=== PATIENT | female | born 1960 | race Caucasian/White ===

== ENCOUNTER 2017-08-24 09:20 | Emergency (ER) | payer BC ==
--- OUTSIDE RECORDS SUMMARY | 2017-08-24 09:28 | XMS REPORT ---
:1960 External Reference #:[id number] Author Organization [employer] Address [address] [place] [address] Phone [phone] Care Team Providers Name Role Phone Geeta Raymond DOOR PERSON-C Primary Care Physician Unavailable Payers Type Date Identification Numbers Payment Provider Subscriber Commercial Policy Number: [id number] BS MARYY Reginald Kwadwo Roldan PayID: [id number] [facility] [address] [place] [address] Problems Date Description Provider Status Onset: Rosacea Active Onset: Menopausal symptom Active Onset: Migraine Active Onset: Panic disorder Active Onset: Seasonal allergy Active Onset: Degeneration of cervical Active intervertebral disc Onset: 02/23/2015 Facial nerve disorder Ana Paula Paredes O.D. Active Onset: 03/04/2015 Superficial keratitis Ana Paula Paredes O.D. 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 Active Onset: 06/13/2015 Punctate keratitis Ana Paula Paredes O.D. Active Onset: 06/13/2015 Nuclear senile cataract Ana Paula Paredes O.D. 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 ETOH Use Rarely consumes alcohol Smoking Patient has never smoked Recreational Drug Use Denies Drug Use Daily Caffeine Does Not Consume Caffeine Allergies, Adverse Reactions, Alerts Date Description Reaction Status Severity Comments 02/23/2015 Aspirin Nausea and Vomiting active 02/23/2015 Epinephrine Convulsions active 02/23/2015 Iodine Convulsions active 02/23/2015 Red Wine active 02/23/2015 Strawberries active Medications Medication Date Status Form Strength Qnty SIG Indications Ordering Provider Restasis Active Emulsion 0.05% 90Day 1 drops H04.123 Ana Paula JCarmen 017 both eyes [place], twice a O.D. day Systane Active Solution 0.4-0.3% 5ml 1 drop Ana Paula Egan Preservative 015 both eyes [place], Free 2-3 times O.D. a day Emergen-C Active Packet Unknown Immune Plus 000 Vitamin B Active Tablets Unknown Complex 000 Restasis Hx Emulsion 0.05% 180unit 1 drops H16.143 Ana Paula Egan 015 - s both eyes [place], twice a O.D. 016 day Systane PM Hx At Ana Paula J. 015 - Bedtime [place], O.D. 018 Medications Administered in Office Medication Date Status Form Strength Qnty SIG Indications Ordering Provider Crizal Administered Injection Verona 3 Brown,Abo Crizal Administered Injection Verona 3 Brown,Abo Results Description No Information Procedures Date CPT Code Description Status 11/14/2016 42948 Est Patient Comprehensive Exam Completed 10/08/2016 67404 Close Lacrimal Punctum, Plug Completed 09/17/2016 54419 Est Patient Intermediate Exam Completed 09/17/2016 99377 Close Lacrimal Punctum, Plug Completed 11/11/2015 21814 Est Patient Comprehensive Exam Completed 06/13/2015 26266 Est Patient Intermediate Exam Completed 06/13/2015 67819 Close Lacrimal Punctum, Plug Completed 06/13/2015 40022 Close Lacrimal Punctum, Plug Completed 03/04/2015 14365 Close Lacrimal Punctum, Plug Completed 03/04/2015 72891 Close Lacrimal Punctum, Plug Completed 03/04/2015 22675 Est Patient Intermediate Exam Completed 02/23/2015 37009 Est Patient Intermediate Exam Completed 11/24/2014 508 Refresh PM Ointment Completed 08/09/2014 88431 Determination Of Refractive State Completed 08/09/2014 54688 Est Patient Comprehensive Exam Completed 04/29/2013 67113 Est Patient Intermediate Exam Completed 06/11/2012 88917 Determination Of Refractive State Completed 06/11/2012 05761 Est Patient Comprehensive Exam Completed 12/05/2011 74792 Est Patient Comprehensive Exam Completed 05/09/2011 202 Refit SCL Completed 05/09/2011 56902 Est Patient Comprehensive Exam Completed 04/28/2010 50331 Est Patient Comprehensive Exam Completed 03/18/2009 97082 Determination Of Refractive State Completed 03/18/2009 49605 Est Patient Comprehensive Exam Completed 03/19/2008 13163 Est Patient Comprehensive Exam Completed 03/12/2008 24980 Determination Of Refractive State Completed 03/12/2008 72013 Est Patient Comprehensive Exam Completed 03/10/2007 17549 Determination Of Refractive State Completed 03/10/2007 83318 Est Patient Comprehensive Exam Completed 12/10/2005 28570 Est Patient Intermediate Exam Completed 12/10/2005 22555 Determination Of Refractive State Completed 09/24/2005 10986 Est Patient Intermediate Exam Completed 04/25/2005 78979 Est Patient Intermediate Exam Completed 04/25/2005 508 Refresh PM Ointment Completed 04/25/2005 505 Liquigel Eye Drops 15ML Completed 12/29/2004 01196 Est Patient Intermediate Exam Completed 11/02/2004 61977 Photography Ocular External Completed 06/14/2004 27479 Determination Of Refractive State Completed 06/14/2004 03960 Est Patient Comprehensive Exam Completed 07/22/2003 113 Crizal Completed 08/21/2002 113 Crizal Completed Encounters Type Date Location Provider CPT E/M Dx Office Visit 02/13/2017 Antonio Gonzalez MD, Ana Paula Paredes, 00327 H04.123 3:00p pc O.D. Q12.0 H40.052 Office Visit 10/17/2016 1:40p Antonio Gonzalez MD, Ana Paula Paredes, 01691 H04.123 pc O.D. Office Visit 10/08/2016 2:20p Antonio Gonzalez MD, Ana Paula Paredes, 15210 H04.123 pc O.D. Office Visit 11/24/2014 4:00p Antonio Gonzalez MD, Ana Paula Paredes, 02822 375.15 pc O.D. Office Visit 11/17/2014 4:00p Antonio Gonzalez MD, Ana Paula Paredes, 18875 375.15 pc O.D. Office Visit 06/15/2013 7:00p Antonio Gonzalez MD, Ana Paula Paredes, 94548 379.21 pc O.D. Office Visit 05/14/2013 11:10a Antonio Gonzalez MD, Ana Paula Paredes, 35821 375.15 pc O.D. Office Visit 11/02/2004 10:45a Antonio Gonzalez MD, Jose Caputo M.D. 95458 743.51 pc Plan of Care 08/16/2017 - Ana Paula Pardees O.D.H04.123 Dry eye syndrome of bilateral lacrimal glandsComments:continue restasis both eyes 2 x daycontinue artificial tears both eyes as neededFollow up:6 Month Follow Up You can expect to have your eyes dilated at your next visit. If Dr. Paredes orders any additional testing, it may require extra time. We recommend that you bring sunglasses, as dilation drops often make you light sensitive until they wear off. We always recommend you bring someone to drive you home if you are uncomfortable driving with your eyes dilated. If you have any questions before your next visit, feel free to call our office at .Q12.0 Congenital htfhcvdoU51.052 Ocular hypertension, left eye
--- NOTE | 2017-08-24 10:16 | ED ---
Abdominal Pain/Female - HPI Summary HPI Summary: G?P? fit pt here w/ RLQ pain that started last night abruptly and has persisted into this morning. She describes pain as "pulsatile" and intermittent. Has been controlling well with 200-400MG of ibuprofen PO at home. Called her PCP this morning who wanted to schedule her for an appointment however PCP couldn't order outpt imaging so was sent here. Pt reports feeling well overall yesterday (ie. eating/drinking well, exercised as usual, had a normal BM, etc) until about 23:00 - pain started and had associated sx of stomach feeling "off" - doesn't feel this was true nausea and did not have vomiting - ate dinner but appetite wasn't what it usually is. Last ate around 21:30. Does report 1 loose stool since sx started - denies pain w/ this, hematochezia, mucous in stool, etc. She also reports normal urinary habits although she does urinate frequently d/t high water intake - denies burning, urgency, hematuria, flank pain and no vaginal d/c. She does report recently ending her menstrual cycle which she's had once a month every month. Most recent cycle lasted 2 weeks which is longest she's ever bled. H/o uterine polyp and she follows with [facility] for this - has TVUS 5 weeks ago and compared to previous TVUS was told it's getting a little larger, but still in a state of monitoring. No h/o ovarian cyst , cervical pathology, exctopic , etc. She reports h/o tubal ligation and had routine well woman exam w/ pap in the past few months - all normal/ negative. She reports pain at its worse w/o ibuprofen is 6/10. Feels okay at the moment. No previous ab surgeries other than tubal ligation. No other health issues. Other physical sx she found to be new were a facial rash w/ acne and hotflashes yesterday during the day. Reports she gets hotflashes but they're usually at night. She attributed these changes to "hormones" but also reports she started a new B12 supplement w/ stevia which she does not report having had before. Otherwise, no new foods, beverages, detergents, cosmetics, etc. - History of Current Complaint Chief Complaint: Harika Stated Complaint: ABD PAIN, LOWER RIGHT SIDE Time Seen by Provider: 08/24/17 09:34 Hx Obtained From: Patient Hx Last Menstrual Period: NOW Pain Intensity: 5 Allergies/Adverse Reactions: Allergies Allergy/AdvReac Type Severity Reaction Status Date / Time Epinephrine Allergy Severe See Comment Verified 07/12/15 19:49 Sulfamethoxazole Allergy Severe See Comment Verified 07/12/15 19:49 w/Trimethoprim [From Bactrim] Aspirin AdvReac Mild Nausea Verified 07/12/15 19:49 contrast dyes Allergy Severe Shakes Uncoded 01/20/15 07:02 red wine Allergy Severe Anaphylatic Uncoded 01/20/15 07:02 Shock strawberries Allergy Severe Anaphylatic Uncoded 01/20/15 07:02 Shock PMH/Surg Hx/FS Hx/Imm Hx Previously Healthy: Yes Endocrine/Hematology History: Denies: Hx Anticoagulant Therapy, Hx Blood Disorders, Hx Diabetes, Hx Thyroid Disease, Hx Anemia, Hx Coagulopothy, Autoimmune Disease Cardiovascular History: Denies: Hx Aneurysm, Hx Congenital Heart Disease, Hx Hypertension GI History: Reports: Other GI Disorders - preventative colonoscopy at 51y.o. - normal; preg. hemorrhoid History: Reports: Other Problems/Disorders - uterine polyp; menstruation into later age Sensory History: Reports: Hx Cataracts - CONGENITAL LEFT EYE, Hx Contacts or Glasses - GLASSES Denies: Hx Hearing Aid Opthamlomology History: Reports: Hx Cataracts - CONGENITAL LEFT EYE, Hx Contacts or Glasses - GLASSES Neurological History: Reports: Hx Migraine - OCC Psychiatric History: Reports: Hx Anxiety - PANIC DISORDER, Hx Depression - TX IN THE PAST - Cancer History Hx Chemotherapy: No Hx Radiation Therapy: No - Surgical History Surgery Procedure, Year, and Place: dental; T & A 1976; tubal ligation 1992 Hx Anesthesia Reactions: Yes - TOOK VERY LONG TIME TO WAKE UP AFTER TUBAL 1995 Infectious Disease History: No Infectious Disease History: Denies: History Other Infectious Disease, Traveled Outside the [place] in Last 30 Days - Family History Known Family History: Positive: Other - M: breast CA in 80's, remission x 3ys; GM cervical CA in 50's - Social History Occupation: Employed Full-time Lives: With Family Alcohol Use: Rare Hx Substance Use: No Substance Use Type: Reports: None Hx Tobacco Use: No Smoking Status (MU): Never Smoked Tobacco Review of Systems Constitutional: Negative Negative: Fever, Chills, Fatigue ENT: Negative Cardiovascular: Negative Negative: Chest Pain Respiratory: Negative Negative: Shortness Of Breath Positive: Abdominal Pain. Negative: Vomiting, Diarrhea, Nausea Positive: see HPI Musculoskeletal: Negative Skin: Negative Neurological: Negative Psychological: Normal All Other Systems Reviewed And Are Negative: Yes Physical Exam Triage Information Reviewed: Yes Vital Signs On Initial Exam: Initial Vitals Temp Pulse Resp BP Pulse Ox 99.7 F 81 16 130/79 98 08/24/17 09:23 08/24/17 09:23 08/24/17 09:23 08/24/17 09:23 08/24/17 09:23 Vital Signs Reviewed: Yes Appearance: Positive: Well-Appearing, No Pain Distress, Well-Nourished Skin: Positive: Warm, Skin Color Reflects Adequate Perfusion, Dry Head/Face: Positive: Normal Head/Face Inspection Eyes: Positive: EOMI, Conjunctiva Clear - anicteric sclera, Other: - Lt eye ENT: Positive: Normal ENT inspection, Hearing grossly normal, Pharynx normal - mucosa moist Neck: Positive: Supple - no gross thyromegaly Respiratory/Lung Sounds: Positive: Clear to Auscultation, Breath Sounds Present. Negative: Rales, Rhonchi, Wheezes Cardiovascular: Positive: Normal, RRR, Pulses are Symmetrical in both Upper and Lower Extremities, S1, S2. Negative: Murmur, Rub Abdomen Description: Positive: No Organomegaly, Soft, CVA Tenderness (R), Distended - RUQ w/ mild distention (tympany on percussion). Negative: CVA Tenderness (L) Bowel Sounds: Positive: Present Pelvic Exam: Positive: external exam normal, speculum exam normal, no masses, tender w/ cervical motion, tender uterus - Rt side. Negative: active bleeding, cervicitis - scant mucous d/c, lesions Musculoskeletal: Positive: Normal, Strength/ROM Intact Neurological: Positive: Normal, Sensory/Motor Intact, Alert, Oriented to Person Place, Time, CN Intact II-III Psychiatric: Positive: Normal - [place] Coma Scale Coma Scale Total: 15 Diagnostics - Vital Signs Vital Signs Temp Pulse Resp BP Pulse Ox 08/24/17 09:46 99.4 F 08/24/17 09:23 99.7 F 81 16 130/79 98 - Laboratory Result Diagrams: 08/24/17 10:31 08/24/17 10:31 Lab Statement: Any lab studies that have been ordered have been reviewed, and results considered in the medical decision making process. Abdominal Pain Fem Course/Dx - Course Course Of Treatment: TVUS reveals 4.4cm fibroid, smalla mount of fluid in endometrial cavity and no torsion. Pt had relief w/ NSAID in ED - stable. Will d/c back to Dr. Joseph for f/u this week. Danger s/sx reviewed w/ pt and husbad who agree to return as needed - Diagnoses Provider Diagnoses: Pelvic pain in female, Fibroid, uterine Discharge - Discharge Plan Condition: Stable Disposition: HOME Referrals: Javier Joseph MD [Medical Doctor] - Additional Instructions: You appear to have a fibroid in your uterus - following a longer than usual period, this may be the cause of your symptoms currently. You may continue ibuprofen up to 800mg per dose with food for pain. You may also try warm baths, heat pack abdomen/pelvic compresses and eating easily to digest foods to prevent increased gas/bloating/constipation. It is also encouraged that you rest /take it easy until follow-up with [facility]. Follow-up with Dr. Joseph this week - call Saturday to schedule an appointment. *If you develop heavy vaginal bleeding, vaginal discharge, urinary frequency/ pain/blood in urine, fever, chills, chest pain, vomiting, diarrhea, return to ED
[2017-08-24] MEDS ORDERED: Ketorolac INJ* 30 MG/ML 1 ML VIAL IV PUSH ONE ×2 (10:20→13:29)
[2017-08-24 10:42] LABS: ABS Basophils 0.1 10^3/ul (0-0.2); ABS Eosinophils 0.2 10^3/ul (0-0.6); ABS Lymphocytes 2.1 10^3/ul (1.0-4.8); ABS Monocytes 0.3 10^3/ul (0-0.8); ABS Neutrophils 2.9 10^3/ul (1.5-7.7); ABS Nucleated RBC 0 10^3/ul; Eosinophil % 2.9 % (0-6); Hematocrit 39 % (35-47); Hemoglobin 13.1 g/dl (12.0-16.0); Mean Corpuscular HGB Conc 33 g/dl (31-36); Mean Corpuscular Hemoglobin 29 pg (27-31); Mean Corpuscular Volume 86 fL (80-97); Mean Platelet Volume 7 um3 (7.4-10.4); Nucleated Red Blood Cells % 0; Platelet Count 276 10^3/ul (150-450); Red Blood Count 4.58 10^6/ul (4.0-5.4); Red Cell Distribution Width 14 % (10.5-15); White Blood Count 5.6 10^3/ul (3.5-10.8)
[2017-08-24 11:01] LABS: EGFR Non-African American 92.6 (>60)
--- NOTE | 2017-08-24 12:29 | RAD ---
HISTORY: Right lower quadrant pain, history of uterine polyp COMPARISONS: None relevant TECHNIQUE: Multiple transverse and longitudinal ultrasound images were obtained of the pelvis using grayscale, color Doppler, and spectral Doppler imaging using the transabdominal transducer. FINDINGS: UTERUS: The uterus measures 11.1 x 5.6 x 6.6 cm. There is a submucosal fibroid along the anterior body measuring approximately 4.4 x 3.3 x 3.8 cm in size. ENDOMETRIUM: The endometrial stripe is smooth. The endometrium measures 0.6 cm in thickness. There is a small amount of fluid within the endometrial cavity.. CUL-DE-SAC: There is no free fluid within the cul-de-sac. RIGHT OVARY: The right ovary measures 2.7 x 1.1 x 2.5 cm. Normal arterial and venous waveforms are identifiable within the ovary on spectral Doppler imaging. LEFT OVARY: The left ovary is documented visualized. BLADDER: The visualized bladder is unremarkable. OTHER: None IMPRESSION: 1. LEFT OVARY IS NOT CLEARLY VISUALIZED. 2. THERE IS A SUBMUCOSAL FIBROID ALONG THE ANTERIOR BODY MEASURING UP TO 4.4 CM. 3. THERE IS A SMALL AMOUNT OF FLUID WITHIN THE ENDOMETRIAL CAVITY. 4. NO SONOGRAPHIC FEATURES OF RIGHT OVARIAN TORSION. PLEASE NOTE THAT PARTIAL OR INTERMITTENT TORSION MAY BE SONOGRAPHICALLY NORMAL.
[2017-08-24 12:51] LABS: Urine Appearance Cloudy; Urine Blood Negative (Negative); Urine Color Yellow; Urine Ketones Negative (Negative); Urine Protein Negative (Negative); Urine Specific Gravity 1.008 (1.010-1.030); Urine Urobilinogen Negative (Negative)
[2017-08-24 14:20] VITALS: BP 123/81
== END 2017-08-24 14:18 | disposition home or self-care (01) ==
LOC: ED 09:20
DX: R10.2 Pelvic and perineal pain (principal); D25.9 Leiomyoma of uterus, unspecified; R10.31 Right lower quadrant pain
CPT/HCPCS: 36415; 76856; 80053; 81003; 83605; 83690; 83735; 84702; 85025; 86140; 96374; 96375; 99282; J1885

== ENCOUNTER 2018-01-06 21:13 | Observation (INO) | payer BC ==
[2018-01-06] MEDS ORDERED: Labetalol IV* 5 MG/ML 20 ML VIAL IV PUSH ONE (22:10)
[2018-01-06 22:55] LABS: ABS Basophils 0.1 10^3/ul (0-0.2); ABS Eosinophils 0.2 10^3/ul (0-0.6); ABS Lymphocytes 2.7 10^3/ul (1.0-4.8); ABS Monocytes 0.4 10^3/ul (0-0.8); ABS Neutrophils 4.3 10^3/ul (1.5-7.7); ABS Nucleated RBC 0 10^3/ul; Hematocrit 41 % (35-47); Lymphocyte % 34.6 % (25-47); Mean Corpuscular HGB Conc 34 g/dl (31-36); Mean Corpuscular Hemoglobin 29 pg (27-31); Mean Corpuscular Volume 87 fL (80-97); Mean Platelet Volume 7.5 um3 (7.4-10.4); Nucleated Red Blood Cells % 0; Platelet Count 322 10^3/ul (150-450); Red Blood Count 4.78 10^6/ul (4.0-5.4); Red Cell Distribution Width 14 % (10.5-15); White Blood Count 7.7 10^3/ul (3.5-10.8)
[2018-01-06 22:59] LABS: INR 0.99 (0.77-1.02)
[2018-01-06 23:13] LABS: EGFR Non-African American 86.6 (>60)
[2018-01-07] MEDS ORDERED: Aspirin TAB* 325 MG PO ONE (00:07)
--- NOTE | 2018-01-07 00:20 | ED ---
Adilia Marti Emily, scribed for Miguel Carpenter MD on 01/06/18 at 2158 . Neurological HPI - HPI Summary HPI Summary: This patient is a 57 year old F referred to [facility] by Dr. Dunbar accompanied by with a chief complaint of R hand weakness that began 0300 today. The patient rates the pain 6/10 in severity. Symptoms aggravated by nothing. Symptoms alleviated by Valium. Patient reports pulsing neck pain (radiating into back) and R shoulder pain. Pt is dominant R handed. 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 - History of Current Complaint Chief Complaint: EDGeneral Stated Complaint: TINGLING IN RT ARM Time Seen by Provider: 01/06/18 21:49 Hx Obtained From: Patient Hx Last Menstrual Period: NOW Onset/Duration: Sudden Onset, Started hours ago, Still Present Onset Severity: Moderate Current Severity: Moderate Neurological Deficit Location: RUE Pain Intensity: 6 Pain Scale Used: 0-10 Numeric Character: Other: - Positive pulsing neck pain and R should pain Aggravating: Nothing Alleviating: Nothing Associated Signs and Symptoms: Positive: Nothing - Positive pulsing neck pain and R shoulder pain - Allergy/Home Medications Allergies/Adverse Reactions: Allergies Allergy/AdvReac Type Severity Reaction Status Date / Time aspirin Allergy Nausea Verified 01/06/18 23:26 epinephrine Allergy tremors, Verified 01/06/18 23:26 triggers panic response sulfamethoxazole Allergy Anaphylatic Verified 01/06/18 23:26 [From Bactrim] Shock trimethoprim [From Bactrim] Allergy Anaphylatic Verified 01/06/18 23:26 Shock contrast dyes Allergy Severe Shakes Uncoded 01/20/15 07:02 red wine Allergy Severe Anaphylatic Uncoded 01/20/15 07:02 Shock strawberries Allergy Severe Anaphylatic Uncoded 01/20/15 07:02 Shock Home Medications: Home Medications Cholecalciferol (Vitamin D3) [Vitamin D3] 2 drop PO DAILY 01/06/18 [History Confirmed 01/06/18] Cyclosporine 0.05% OPHTH (NF) [Restasis 0.05% OPHTH] 1 drop BOTH EYES BID [History Confirmed 01/06/18] Diazepam TAB(*) [Valium TAB(*)] 5 mg PO TID PRN 01/06/18 [History Confirmed 11/20] FLUoxetine CAP* [PROzac CAP*] 10 mg PO DAILY 01/06/18 [History Confirmed ] Fluoride (Sodium) [Fluoridex] 10 ml PO BID 01/06/18 [History Confirmed 01/06/18] Vitamin B Complex 1 teasp PO DAILY 01/06/18 [History Confirmed 01/06/18] PMH/Surg Hx/FS Hx/Imm Hx Previously Healthy: No Endocrine/Hematology History: Denies: Hx Anticoagulant Therapy, Hx Blood Disorders, Hx Diabetes, Hx Thyroid Disease, Hx Anemia Cardiovascular History: Denies: Hx Aneurysm, Hx Congenital Heart Disease, Hx Hypertension GI History: Reports: Other GI Disorders - preventative colonoscopy at 51y.o. - normal; preg. hemorrhoid History: Reports: Other Problems/Disorders - uterine polyp; menstruation into later age Sensory History: Reports: Hx Cataracts - CONGENITAL LEFT EYE, Hx Contacts or Glasses - GLASSES Denies: Hx Hearing Aid Opthamlomology History: Reports: Hx Cataracts - CONGENITAL LEFT EYE, Hx Contacts or Glasses - GLASSES Neurological History: Reports: Hx Migraine - OCC Psychiatric History: Reports: Hx Anxiety - PANIC DISORDER, Hx Depression - TX IN THE PAST - Cancer History Hx Chemotherapy: No Hx Radiation Therapy: No - Surgical History Surgery Procedure, Year, and Place: dental; T & A 1976; tubal ligation 1992 Hx Anesthesia Reactions: Yes - TOOK VERY LONG TIME TO WAKE UP AFTER TUBAL 1995 Infectious Disease History: No Infectious Disease History: Denies: History Other Infectious Disease, Traveled Outside the [place] in Last 30 Days - Family History Known Family History: Positive: Other - M: breast CA in 80's, remission x 3ys; GM cervical CA in 50's - Social History Occupation: Retired Lives: With Family Alcohol Use: Rare Hx Substance Use: No Substance Use Type: Reports: None Hx Tobacco Use: No Smoking Status (MU): Never Smoked Tobacco Review of Systems Positive: Other - Positive R shoulder pain and pulsing neck pain Positive: Weakness All Other Systems Reviewed And Are Negative: Yes Physical Exam - Summary Physical Exam Summary: VITAL SIGNS: Reviewed. GENERAL: ~Patient is a well-developed and nourished female who is lying comfortable in the stretcher. Patient is not in any acute respiratory distress. HEAD AND FACE: No signs of trauma. No ecchymosis, hematomas or skull depressions. No sinus tenderness. EYES: PERRLA, EOMI x 2, No injected conjunctiva, no nystagmus. EARS: Hearing grossly intact. Ear canals and tympanic membranes are within normal limits. MOUTH: Oropharynx within normal limits. NECK: Supple, trachea is midline, no adenopathy, no JVD, no carotid bruit, no c- spine tenderness, neck with full ROM. CHEST: Symmetric, no tenderness at palpation LUNGS: Clear to auscultation bilaterally. No wheezing or crackles. CVS: Regular rate and rhythm, S1 and S2 present, no murmurs or gallops appreciated. ABDOMEN: Soft, non-tender. No signs of distention. No rebound no guarding, and no masses palpated. Bowel sounds are normal. EXTREMITIES: FROM in all major joints, no edema, no cyanosis or clubbing. NEURO: Alert and oriented x 3. No acute neurological deficits. Speech is normal and follows commands. SKIN: Dry and warm Triage Information Reviewed: Yes Vital Signs On Initial Exam: Initial Vitals Temp Pulse Resp BP Pulse Ox 99.4 F 82 16 178/86 100 01/06/18 21:16 01/06/18 21:16 01/06/18 21:16 01/06/18 21:16 01/06/18 21:16 Vital Signs Reviewed: Yes Diagnostics - Vital Signs Vital Signs Temp Pulse Resp BP Pulse Ox 01/06/18 21:27 72 206/96 98 01/06/18 21:16 99.4 F 82 16 178/86 100 - Laboratory Result Diagrams: 01/06/18 22:45 01/06/18 22:45 Lab Statement: Any lab studies that have been ordered have been reviewed, and results considered in the medical decision making process. - CT Cervical Spine CT CT Interpretation Completed By: Radiologist - CT cervical spine reveals, per radiologist, 1. Spine straightening/reversal with differential of paraspinous muscle spasm and/or positioning. Please correlate with patient symptoms. 2. There is mild degenerative disc space narrowing most prominent at C5-6 and C6- 7. Endplate spurring. There is mild spinal canal narrowing, with an AP canal dimension of 8-10 mm at C6-7. There is NO significant change from prior study. ED physician has reviewed this radiology report. Head CT CT Interpretation Completed By: Radiologist - Head CT reveals, per radiologist, NO evidence of intracranial hemorrhage or mass. ED physician has reviewed this radiology report. - EKG 2311 Cardiac Rate: NL EKG Rhythm: Sinus Rhythm - 63 BPM EKG Interpretation: Left axis deviation Re-Evaluation - Re-Evaluation First Eval Re-Evaluation Time: 00:05 Change: Improved Comment: The patient reports that her symptoms have resolved Course/Dx - Course Course Of Treatment: This patient is a 57 year old F referred to [facility] by Dr. Dunbar accompanied by with a chief complaint of R hand weakness that began [address] cervical spine reveals, per radiologist , 1. Spine straightening/reversal with differential of paraspinous muscle spasm and/or positioning. 2. There is mild degenerative disc space narrowing most prominent at C5-6 and C6-7. Endplate spurring. There is mild spinal canal narrowing, with an AP canal dimension of 8-10 mm at C6-7. There is NO significant change from prior study. Head CT reveals, per radiologist, NO evidence of intracranial hemorrhage or mass. Consult with Dr. Cooper ( hospitalist) at [phone]. He agrees to admit pt for further evaluation. The patient is agreeable with this plan. - Diagnoses Provider Diagnoses: TIA (transient ischemic attack), Hypertension - Physician Notifications Discussed Care Of Patient With: Jacques Cooper Time Discussed With Above Provider: 00:08 Instructed by Provider To: Other - Consult with Dr. Cooper (hospitalist) at [phone]. He agrees to admit pt for further evaluation. Discharge - Sign-Out/Discharge Documenting (check all that apply): Discharge/Admit/Transfer - Admit to [facility] - Discharge Plan Condition: Stable Disposition: ADMITTED TO [facility] Referrals: Fe Dunbar [Primary Care Provider] - The documentation as recorded by the Adilia carrasco Emily accurately reflects the service I personally performed and the decisions made by me, Miguel Carpenter MD.
[2018-01-07] MEDS ORDERED: Acetaminophen TAB* 325 MG PO PRN (00:56)
[2018-01-07] MEDS ORDERED: Ondansetron 40 MG VIAL* 2 MG/ML 20 ML VIAL IV PRN (00:56)
[2018-01-07] MEDS ORDERED: Diazepam TAB(*) 5 MG PO PRN (00:58)
[2018-01-07] MEDS ORDERED: hydrALAZINE IV* 20 MG/ML VIAL IV SLOW PU PRN (00:59)
[2018-01-07] MEDS: Aspirin 81 mg CHEW TAB* 81 MG TAB.CHEW PO ONE ×2 (01:05→01:33)
[2018-01-07 06:26] LABS: ABS Basophils 0.1 10^3/ul (0-0.2); ABS Eosinophils 0.3 10^3/ul (0-0.6); ABS Lymphocytes 2.8 10^3/ul (1.0-4.8); ABS Monocytes 0.5 10^3/ul (0-0.8); ABS Neutrophils 2.7 10^3/ul (1.5-7.7); ABS Nucleated RBC 0 10^3/ul; Eosinophil % 4.1 % (0-6); Hematocrit 40 % (35-47); Hemoglobin 13.2 g/dl (12.0-16.0); Lymphocyte % 44.5 % (25-47); Mean Corpuscular HGB Conc 33 g/dl (31-36); Mean Corpuscular Hemoglobin 29 pg (27-31); Mean Corpuscular Volume 86 fL (80-97); Mean Platelet Volume 7.3 um3 (7.4-10.4); Nucleated Red Blood Cells % 0; Platelet Count 286 10^3/ul (150-450); Red Cell Distribution Width 14 % (10.5-15); White Blood Count 6.2 10^3/ul (3.5-10.8)
--- NOTE | 2018-01-07 06:41 | HP ---
CC: AUGUSTINE Pink; Dr. Goldman * HISTORY AND PHYSICAL: DATE OF ADMISSION: 01/07/18 PRIMARY CARE PROVIDER: AUGUSTINE Pink from [facility]. ATTENDING PHYSICIAN WHILE IN HOSPITAL: Jacques Cooper MD * (report dictated by Mike Enamorado NP) CHIEF COMPLAINT: 1. Right neck pain. 2. Right arm pain and weakness. HISTORY OF PRESENT ILLNESS: Mrs. Roldan is a 57-year-old female patient. She has a history of hypertension, not taking meds, just said she is following with her primary care provider and following her blood pressures taking them at home. She states they have been running consistently high. She has a history of osteopenia, depression, anxiety, PTSD, and a history of migraine disorders. She comes in to the ED today stating that this evening she had an episode where she started having a sharp pain in her right neck. Then, there was a burning discomfort and then she started having shooting pain down the right arm. The right arm had become weak. She denied having any trauma to her shoulder or to her neck. She states she has had frozen shoulder in the past and that is what it felt like. 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 She was concerned because of the weakness that lasted about an hour, she had a dull ache in the arm thereafter. She denied having any trouble with her right leg, but she does state that she has been having intermittent bilateral lower extremity numbness at times and at times has had numbness and tingling to both her hands. She denies having any weakness in both hands and weakness in both legs at the same time, but there was exception tonight where she had a significant amount of weakness in that right hand. She denied having any fevers or chills. There has been no abdominal pain. No vomiting or diarrhea. She denied any facial drooping. No visual changes. 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 She has not had any trouble with speech, slurring of her words, but she came into the ED today. There was concern because of this right arm weakness and we were asked to evaluate for admission. PAST MEDICAL HISTORY: Significant for: 1. Hypertension. 2. PTSD. 3. Osteopenia. 4. Depression. 5. Anxiety. 6. Migraine. PAST SURGICAL HISTORY: 1. She has had D and C. 2. She has had several maxillofacial surgeries. 3. She has had a history of tubal ligation. 4. She has also had a history of tonsillectomy. MEDICATIONS: Home meds include: 1. Vitamin D3 two tablets p.o. daily. 2. Fluoride 10 cc p.o. b.i.d. 3. Vitamin B 1 tablespoon p.o. daily. 4. Valium 5 mg p.o. t.i.d. as needed. 5. Restasis 1 drop both eyes b.i.d. 6. Prozac 10 mg daily. ALLERGIES TO MEDICATIONS: Include ASPIRIN, which causes just an upset stomach and mostly it is in the adult form. She is allergic to EPINEPHRINE, BACTRIM, CONTRAST DYE, RED WINE, and STRAWBERRIES. FAMILY HISTORY: Mother has diabetes and breast cancer. Father had a stroke and also of septicemia. SOCIAL HISTORY: She does not smoke. Does not drink. She does not drink caffeine. Surrogate decision makers are her and daughter. REVIEW OF SYSTEMS: There is no documented fever. She denied having any significant weight change. There is no double vision. She denies having any ear discharge. There was no rhinorrhea. No sore throat. No thyroid enlargement. She denied having any chest pain. There is no orthopnea. There is no nocturnal dyspnea. No abdominal pain. No nausea, no vomiting. No dysuria, no frequency. No seizure, no loss of consciousness. No pruritus and no skin ulcerations. Review of 14 systems was completed, all others negative. PHYSICAL EXAMINATION GENERAL: At this time, Mrs. Roldan is a 57-year-old female patient. She is sitting in the ED stretcher. She does not appear to be in any acute distress. VITAL SIGNS: Blood pressure 171/88, pulse 67, respirations 20, O2 sat 98%, temperature 99.4. HEENT: Head: Atraumatic, normocephalic. Eyes: EOMs are intact. Sclerae anicteric and not pale. Throat: Oral mucosa appears to be moist. No oropharyngeal erythema. NECK: Supple. LUNGS: Clear to auscultation bilaterally. No wheezes, rales, or rhonchi. HEART: Sounds S1, S2. She had a regular rate and rhythm. No murmurs, rubs, or gallops. ABDOMEN: Soft, flat, nontender. Bowel sounds are present. EXTREMITIES: Pulses were 2+ throughout. She is moving now all 4 extremities with 5/5 strength. NEUROLOGIC: She is awake. She is alert. She is oriented x3. Her speech is clear. Her tongue is midline. [employer] Titles are equal. Qtnhoe-bi-cdhz intact bilaterally. Acyi-us-fyol intact bilaterally. She had no gross focal deficits. Cranial nerves II through XII were intact. SKIN: Grossly intact. DIAGNOSTIC STUDIES/LAB DATA: Labs today revealing a WBC of 7.7, RBC of 4.78, hemoglobin 14.0, hematocrit of 41, platelet count of 322. INR was 0.99. The sodium was 141, potassium 3.7, chloride 102, bicarb 31, BUN 9, creatinine 0.70, glucose 113, calcium 9.9, mag 2.1. Total bili 0.3, AST 15, ALT 15, alk phos 52. Troponin 0. Albumin of 4.7. She did have a brain CT today. Findings: No hemorrhage or mass. No acute changes are demonstrated. No ventriculomegaly. Skull base and calvarium demonstrate no acute changes. No acute changes are noted in the soft tissue. Normal sinuses. Impression: No evidence of intracranial mass or hemorrhage. She had a CT spine, which showed impression: Spine straightening/reversal with differential of paraspinal muscle spasm and/or positioning. Please correlate with the patient's symptoms. There is mild disk space narrowing most prominent at C5-6, C6-7, endplate spurring. There is mild spinal canal narrowing within AP canal dimension of 8 to 10 mm at C6-7. There is no significant change from prior study. She did have an EKG obtained today, which showed a normal sinus rhythm, rate of 63. No ST elevations or T wave inversions were noted. Old medical records were reviewed. ASSESSMENT AND PLAN: Mrs. Roldan is a 57-year-old female patient coming in to the ED today with complaints of burning pain in right neck. In addition to this , that was shooting down to the right hand and then right arm weakness. She will be admitted under observation status for: 1. Right upper arm weakness. Again, etiology is unclear. Certainly, it could be related to a cervical radiculopathy. In addition to this, she also may have had transient ischemic attack, although less likely with the pain and possible impinged nerve. My plan at this point is to touch base with Neurology tomorrow. I will give her aspirin tonight, check an MRI of the brain, MRI of the neck, MRI head and neck and we have ordered an echo with bubble study check. I will place the patient on telemetry to do neuro checks every 4 hours and continue to follow her closely. Check lipid panel, A1c in the morning and then to continue to follow. 2. Hypertension. Her blood pressure when she came in was quite elevated. She does have hypertensive urgency. When she came in, she was as high as 200. Her blood pressure now is 171/88. I will treat her if her systolics get over 180. We may consider starting her on a p.o. antihypertensives such as amlodipine. 3. Osteopenia. Follow up with primary. 4. History of depression and anxiety with posttraumatic stress disorder. Continue supportive care and p.r.n. meds as prescribed. 5. History of migraines. I have ordered p.r.n. Tylenol. 6. DVT prophylaxis. I have ordered SCDs. 7. Code status. Full code. 8. Fluids, electrolytes, and nutrition. She can have a heart healthy diet. TIME SPENT: On admission 60 minutes, greater than half the time spent face-to- face with the patient obtaining my history and physical, other half time spent going over the plan of care with the patient and implementing plan of care. I did discuss the plan of care with my attending, Dr. Cooper; he is in agreement. MIKE ENAMORADO, NICOLE [id number]/CPS #: [id number] ELENA
--- NOTE | 2018-01-07 07:27 | RAD ---
INDICATION: CVA. COMPARISON: There are no prior studies available for comparison. TECHNIQUE: Contiguous axial sections of the brain were obtained from the skull base to the vertex without contrast. FINDINGS: The ventricles, cisterns and sulci are within normal limits. No significant focal abnormality or mass effect is seen. There is no evidence for hemorrhage. No significant focal osseous abnormality is seen. The visualized portion of the paranasal sinuses and mastoid air cells appear clear. IMPRESSION: NO EVIDENCE FOR GROSS ACUTE INFARCT, MASS EFFECT OR HEMORRHAGE.
--- NOTE | 2018-01-07 07:38 | RAD ---
INDICATION: Neck pain right arm and shoulder numbness. COMPARISON: Comparison is made with a prior CT of the cervical spine from February 09, 2014. TECHNIQUE: Contiguous axial sections were obtained from the skull base through the T2 vertebra. Images were reconstructed in the sagittal and coronal planes. FINDINGS: There is straightening and reversal of the normal cervical lordosis. No prevertebral soft tissue swelling or fracture is seen. At the C3-C4 level there is minimal posterior uncinate process spurring. No spinal canal or neural foraminal narrowing is seen. At the C4-C5 level no spinal canal or neural foraminal narrowing is seen. At the C5-C6 level there is mild posterior uncinate process spurring. There is mild spinal canal narrowing. Neural foramen appear patent bilaterally. At the C6-C7 level there is mild to moderate posterior uncinate process spurring which causes mild to moderate spinal canal narrowing which is most prominent toward the left side. There is mild bilateral neural foraminal narrowing. These changes appear similar to the prior study. There is a nodule in the right thyroid lobe measuring 1.8 cm in size which has increased in size from the prior study and previously measured 1.3 cm in size. The lung apices appear clear. The results of this examination were called to the emergency department charge nurse Ashlie. IMPRESSION: 1. STRAIGHTENING OF THE CERVICAL SPINE, NO EVIDENCE FOR FRACTURE OR SUBLUXATION. 2. MILD TO MODERATE CERVICAL SPONDYLOSIS WITH CHANGES MOST PROMINENT AT THE C5-C6 AND C6-C7 LEVELS. 3. 1.8 CM RIGHT THYROID LOBE NODULE. RECOMMEND A FOLLOW-UP OUTPATIENT THYROID ULTRASOUND FOR FURTHER EVALUATION.
[2018-01-07] MEDS: Aspirin 81 mg CHEW TAB* 81 MG TAB.CHEW PO SCH (08:31)
[2018-01-07] MEDS: VITAMIN B COMPLEX PO SCH (08:31)
[2018-01-07] MEDS: CHOLECALCIFEROL PO SCH (08:32)
[2018-01-07] MEDS: CYCLOSPORINE 0.05% BOTH EYES SCH ×2 (08:32→20:44)
[2018-01-07] MEDS: FLUORIDE PO SCH ×2 (08:32→20:45)
--- NOTE | 2018-01-07 08:37 | ED ---
Progress - Progress Note Progress Note: Pt's final radiology read reveals Rt side thyroid nodule. Recommend outpt U/S unless pertinent to sx while here. Discussed with Dr. Byrnes. Re-Evaluation - Re-Evaluation First Eval Re-Evaluation Time: 00:05 Change: Improved Comment: The patient reports that her symptoms have resolved Course/Dx - Course Course Of Treatment: This patient is a 57 year old F referred to [facility] by Dr. Dunbar accompanied by with a chief complaint of R hand weakness that began [address] cervical spine reveals, per radiologist , 1. Spine straightening/reversal with differential of paraspinous muscle spasm and/or positioning. 2. There is mild degenerative disc space narrowing most prominent at C5-6 and C6-7. Endplate spurring. There is mild spinal canal narrowing, with an AP canal dimension of 8-10 mm at C6-7. There is NO significant change from prior study. Head CT reveals, per radiologist, NO evidence of intracranial hemorrhage or mass. Consult with Dr. Cooper ( hospitalist) at 0008. He agrees to admit pt for further evaluation. The patient is agreeable with this plan. - Diagnoses Provider Diagnoses: TIA (transient ischemic attack), Hypertension - Provider Notifications Time Discussed With Above Provider: 00:08 Instructed by Provider To: Other - Consult with Dr. Cooper (hospitalist) at 0008. He agrees to admit pt for further evaluation. Discharge - Sign-Out/Discharge Documenting (check all that apply): Post-Discharge Follow Up - Discharge Plan Condition: Stable Disposition: ADMITTED TO [facility] - Billing Disposition and Condition Condition: STABLE Disposition: Admitted to [facility]
[2018-01-07] MEDS ORDERED: FLUoxetine CAP* 10 MG PO SCH (09:00)
[2018-01-07] MEDS: FLUOXETINE 10 MG PO SCH ×2 (09:56→09:58)
--- NOTE | 2018-01-07 10:25 | ECHO ---
Patient: BREE COUGHLIN [facility] Rec#: [id number] : 1960 Date: 01/07/2018 Age: 57y Height: 160.02 cm / 63.0 in Weight: 54.43 kg / 120.0 lbs Sex: F BSA: 1.56 Room#: [facility] Admit Date#: 01/07/2018 Type: Inpatient Referring: Mike Enamorado NP Reading: Alex Kelly MD Fashion Model[facility] Transthoracic Echocardiogram Indication: TIA BP: 138/64 HR: 62 Rhythm: NSR Findings History: HTN, PTSD, migraines. Technical Comments: The study quality is good. Completed at 0815. Left Ventricle: The left ventricular chamber size is normal. There is no left ventricular hypertrophy. Global left ventricular wall motion and contractility are within normal limits. Left ventricular systolic function is at the lower limits of normal. The estimated ejection fraction is 50-55%. Normal left ventricular diastolic filling is observed. Left Atrium: The left atrium is slightly dilated. Right Ventricle: Moderator Band present. The right ventricular cavity size is normal. The right ventricular global systolic function is normal. Right Atrium: The right atrium is slightly dilated. Interatrial septum appears intact without evidence of shunting. The bubble study is negative.No evidence of right to left shunting at the atrial evel with and without valsalva maneuver. Aortic Valve: The aortic valve is trileaflet. There is no evidence of aortic valve thickening. There is no evidence of aortic regurgitation. There is no evidence of aortic stenosis. Mitral Valve: The mitral valve leaflets do not appear thickened. There is a trace of mitral regurgitation. There is no evidence of mitral stenosis. Tricuspid Valve: The tricuspid valve leaflets are normal. There is mild tricuspid regurgitation. The right ventricular systolic pressure is estimated at 26 mmHg. No pulmonary hypertension is noted. There is no tricuspid stenosis. Pulmonic Valve: The pulmonic valve appears normal. There is a trace pulmonic regurgitation. There is no pulmonic stenosis. Pericardium: There is no significant pericardial effusion. Aorta: There is no dilatation of the ascending aorta. There is no dilatation of the aortic arch. The aortic root is normal in size. Pulmonary Artery: The main pulmonary artery appears normal. Venous: The inferior vena cava appears normal in size. There is a greater than 50% respiratory change in the inferior vena cava dimension. Contrast: Normal saline was used as contrast for the bubble study. Images 11 and 12. Intravenous contrast was used to help determine presence of intracardiac shunting. Conclusions There is no left ventricular hypertrophy. Global left ventricular wall motion and contractility are within normal limits. The estimated ejection fraction is 50-55%. The bubble study is negative. No significant valvular disease: There is a trace of mitral regurgitation. There is mild tricuspid regurgitation. No pulmonary hypertension is noted. There is a trace pulmonic regurgitation. No reports of prior studies are offered for comparison. Measurements Name Value Normal Range RVIDd (AP) 2D 3.7 cm (0.9 - 2.6) RVDdMajor (2D) 3.4 cm (2.2 - 4.4) RAd ISD 4CH 5 cm (3.4 - 4.9) RA (A4C)W 3.9 cm (2.9 - 4.6) IVSd (2D) 0.9 cm (0.6 - 1) LVPWd (2D) 0.6 cm (0.6 - 1) LVIDd (2D) 4.3 cm (3.6 - 5.4) LVIDs (2D) 3 cm - LV FS (2D) 31 % (25 - 45) Aortic Annulus 1.8 cm (1.4 - 2.6) Ao root diameter (2D) 3 cm (2.1 - 3.5) Ascending Ao 2.7 cm (2.1 - 3.4) Aortic arch 2.3 cm (1.8 - 3.4) LA dimension (AP) 2D 3.5 cm (2.3 - 3.8) LAd ISD 4CH 5 cm (2.9 - 5.3) LA ISD 4CH W 4.2 cm (2.5 - 4.5) Name Value Normal Range LA ESV SP 4CH (A/L) 47 ml - LA ESV SP 2CH (A/L) 71 ml - LA ESV BP (A/L) 59 ml - LA ESV BP (A/L) index 38 ml/m2 - LA ESV SP 4CH (MOD) 46 ml - LA ESV SP 2CH (MOD) 68 ml - Name Value Normal Range MV E-wave Vmax 0.78 m/sec - MV deceleration time 233.9 msec - MV A-wave Vmax 0.95 m/sec - MV E:A ratio 0.81 ratio - LV septal e' Vmax 0.07 m/sec - LV lateral e' Vmax 0.15 m/sec - LV E:e' septal ratio 11.14 ratio - LV E:e' lateral ratio 5.2 ratio - Name Value Normal Range AV Vmax 1.3 m/sec - AV VTI 28.69 cm - AV peak gradient 6.85 mmHg - AV mean gradient 3.8 mmHg - LVOT Vmax 1.05 m/sec - LVOT VTI 22.33 cm - LVOT peak gradient 4.45 mmHg - LVOT mean gradient 2.14 mmHg - TABITHA Vmax 0.72 m/sec - Name Value Normal Range TR Vmax 2.4 m/sec - TR peak gradient 23 mmHg - RAP 3 mmHg - RVSP 26 mmHg - IVC diameter 1.7 cm - Name Value Normal Range PV Vmax 0.85 m/sec - PV peak gradient 2.94 mmHg -
[2018-01-07] MEDS ORDERED: Ibuprofen TAB* 400 MG ONE (10:26)
[2018-01-07] MEDS: Ibuprofen TAB* 400 MG PO PRN ×2 (10:27→17:16)
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
--- NOTE | 2018-01-07 16:31 | RAD ---
Indication: Right arm weakness. Image sequences: Sagittal T1, T2, STIR, axial T1 and T2-weighted images of the cervical spine were obtained. The vertebral bodies appear normal in height. Normal bone marrow signal is noted. There is straightening of the normal lordosis. At C2-C3 and C3-C4 disc spaces well-preserved. No focal protrusion is noted. No central or foraminal stenosis is noted. At C4-C5 spondylitic ridge flattens the thecal sac. No foraminal stenosis is noted. At C5-C6 spondylitic ridge flattens the thecal sac. No central or foraminal stenosis is noted. At C6-C7 left paracentral disc protrusion indents the thecal sac. No foraminal stenosis is noted. At C7-T1 and T1-T2 the disc space appears normal. IMPRESSION: Spondylitic ridge at C6-C7 with flattening of the thecal sac and ventral spinal cord. Minimal broad-based protrusions are noted at C4-C5 and C5-C6.
--- NOTE | 2018-01-07 16:33 | RAD ---
Indication: Right arm weakness. MRA of the neck performed without IV contrast administration. Multiple maximum projection images were obtained. The origins of the great vessels are unremarkable. The common carotid arteries demonstrates no significant stenosis. The internal carotid artery laterally is grossly unremarkable. No evidence of carotid artery dissection is noted. Vertebral arteries are unremarkable. IMPRESSION: Unremarkable MRA of the neck.
--- NOTE | 2018-01-07 19:46 | PN ---
Hospitalist Progress Note Date of Service: 01/07/18 Pt seen and evaluated. 57 yo with anxiety, depression, PTSD, chronic right shoulder and neck pains p/w worsening of symptoms including numbness, lack of dexterity. Admitted for CVA rule out vs cervical disc disease. History and exam favors latter. Appreciate Neuro recs. Also has 1.8cm thyroid nodule increased from 1.3cm prior. Thyroid studies added, TSH, TT3 wnl, FT4 slightly elevated. Plan outpatient ultrasound follow-up. Hypertension likely most related to panic attack. Likely discharge in AM. Going thru hot flash symptoms/menopause.
[2018-01-08] MEDS: FLUORIDE PO SCH (08:27)
[2018-01-08] MEDS: CHOLECALCIFEROL PO SCH (08:27)
[2018-01-08] MEDS: CYCLOSPORINE 0.05% BOTH EYES SCH (08:27)
[2018-01-08] MEDS: VITAMIN B COMPLEX PO SCH (08:27)
[2018-01-08] MEDS: Aspirin 81 mg CHEW TAB* 81 MG TAB.CHEW PO SCH (08:32)
[2018-01-08] MEDS: Ibuprofen TAB* 400 MG PO PRN (08:32)
[2018-01-08] MEDS: FLUOXETINE 10 MG PO SCH (08:32)
[2018-01-08 11:24] VITALS: BP 135/82
--- NOTE | 2018-01-08 16:19 | PN ---
CC: Dr. Leon Tsai* NEUROLOGY FOLLOWUP NOTE: DATE OF FOLLOWUP: 01/08/18 LOCATION: She is in room 448. HOSPITALIST: Dr. Kevin Saunders. PRIMARY CARE PROVIDER: Dr. Stanislaw Manzano. CHIEF COMPLAINT: Neck and right arm pain. INTERVAL HISTORY: Since yesterday, Bita feels somewhat better. She is not getting the shooting pains down her arms so much. It felt somewhat stiff today and she is using a heating pad. That is improved and her mobility and her hand feels better. She feels like her strength in her arm is better than it was when she came in. She has no new complaints other than related to her IV site on the left. She had an MR angiogram of her neck, which was interpreted as normal. There is no evidence of a dissection. MRI of the cervical spine on 01/07/18 was interpreted as showing spondylotic ridge at C6-7 with flattening of the thecal sac and ventral spinal cord. Minimal broad based protrusions are noted at C4-5 and C5-6. I reviewed the images and I agree with the C6-7 interpretation. There may be some lateral recess stenosis on the right and the left. On exam she is afebrile, T-max 99.5 yesterday. Blood pressure most recently 135 /82, heart rate in the 60s and regular. Respiratory rate is 16. Oxygen saturation is 97% on room air. Motor exam reveals normal strength in the right arm proximally and distally. There is no spasticity or rigidity. There is some pain with testing about the right shoulder. She is alert and oriented with intact recent and remote memory. Language is fluent. Impression is that of probable cervical radiculopathy. There are no fixed deficits, but rather just shooting pain from her neck. I have spoken with Dr. Saunders, who said that he spoken with Dr. Tsai, who is going to evaluate her either as an inpatient or outpatient. I will plan to see her in followup in my office as well in a few weeks. If Dr. Tsai thinks it would be helpful, I can perform electrodiagnostic studies of her right arm, but I do not see any weakness on her exam and therefore the yield may be low. [id number]/[facility] #: [id number] ELENA
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
== END 2018-01-08 14:30 | disposition home or self-care (01) ==
LOC: ED 21:13 → MEDTELE 01-07 00:53
PROVIDERS: ADMIT Student in an Organized Health Care Education/Training Program; ATTEND Internal Medicine
DX: M54.12 Radiculopathy, cervical region (principal); M47.892 Other spondylosis, cervical region; E04.1 Nontoxic single thyroid nodule; M25.511 Pain in right shoulder; R20.0 Anesthesia of skin; R53.1 Weakness; Z88.6 Allergy status to analgesic agent; Z88.2 Allergy status to sulfonamides; Z88.8 Allergy status to other drugs, medicaments and biological substances; I10 Essential (primary) hypertension; F43.10 Post-traumatic stress disorder, unspecified; M85.80 Other specified disorders of bone density and structure, unspecified site; F32.9 Major depressive disorder, single episode, unspecified; F41.9 Anxiety disorder, unspecified; G43.909 Migraine, unspecified, not intractable, without status migrainosus; Z79.899 Other long term (current) drug therapy
CPT/HCPCS: 36415; 70450; 70547; 72125; 72141; 80053; 80061; 83001; 83036; 83735; 84439; 84443; 84479; 84484; 85025; 85610; 93005; 93306; 99284; A9270-GY; G0378; G8978-GP-CH; G8979-GP-CH; G8980-GP-CH